=== PATIENT | male | born 1940 | race Caucasian/White ===

== ENCOUNTER 2018-09-11 08:37 | Inpatient (IN) | payer MEDICARE ==
[2018-09-10 11:49] LABS: MICROSCOPIC NOT IND
[2018-09-10 11:49] LABS: BASOPHILS # (AUTO) 0.01 x10^3/uL (0-0.1); BASOPHILS % (AUTO) 0 % (0-1); EOSINOPHILS # (AUTO) 0.08 x10^3/uL (0-0.4); EOSINOPHILS % (AUTO) 1 % (1-7); LYMPHOCYTES # (AUTO) 1.57 x10^3/uL (1-3.4); LYMPHOCYTES % (AUTO) 19 % (22-44); MD NO; MEAN CORPUSCULAR HEMOGLOBIN 32.4 pg (27.5-34.5); MEAN CORPUSCULAR HGB CONC 33.5 g/dL (33.2-36.2); MEAN CORPUSCULAR VOLUME 96.8 fL (81-97); MEAN PLATELET VOLUME 7.4 fL (7.4-10.4); MONOCYTES # (AUTO) 0.74 x10^3/uL (0.2-0.8); MONOCYTES % (AUTO) 9 % (2-9); NEUTROPHILS # (AUTO) 6.11 x10^3/uL (1.8-6.8); NEUTROPHILS % (AUTO) 72 % (42-75); PLATELET COUNT 276 x10^3/uL (130-400); RED BLOOD COUNT 4.44 x10^6/uL (4.38-5.82); RED CELL DISTRIBUTION WIDTH 13.6 % (9.4-14.8)
[2018-09-10 11:58] LABS: CULTURE INDICATED? NO
[2018-09-10 11:58] LABS: PROTHROMBIN TIME 10.5 Seconds (9.6-11.5)
[2018-09-10 11:59] LABS: ANION GAP 6 mmol/L (5-15); CHLORIDE 110 mmol/L (98-107)
[2018-09-10 12:04] LABS: ALANINE AMINOTRANSFERASE 20 U/L (12-78); ALKALINE PHOSPHATASE 104 U/L (45-117); BILIRUBIN,TOTAL 0.5 mg/dL (0.2-1.0); CREATININE 1.16 mg/dL (0.7-1.3); TOTAL PROTEIN 7.3 g/dL (6.4-8.2)
[~2018-09-11] VITALS: Ht 165.1 cm; Wt 77.4 kg
[~2018-09-11 08:37] MED LIST: CALCIUM MAG ZINC; CHOL500015 PO; COQ10; EPINEPHRINE 1 MG/ML, 1ML ONE; GABA300C10 PO; LIDOCAINE/PF 0.5% ,50ML ONE; MULT-108 PO; RAMI10CA59 PO; TAMS-11 PO; THROMBIN 5,000 UNIT VIAL TP ONE; TOBRAMYCIN SULFATE 1.2 GM IMP ONE; VANCOMYCIN 1,000 MG ONE
[2018-09-11] MEDS ORDERED: LACTATED RINGERS 1,000 ML IV SCH (09:17)
[2018-09-11] MEDS ORDERED: MIDAZOLAM 1 MG/ML, 2ML ONE (10:25)
[2018-09-11] MEDS ORDERED: FENTANYL PF 250 MCG/5ML ONE (10:33)
[2018-09-11] MEDS ORDERED: REMIFENTANIL 2 MG ONE (10:33)
[2018-09-11] MEDS ORDERED: PROPOFOL 50 ML ONE ×2 (10:38→11:46)
[2018-09-11] MEDS ORDERED: OXYcodone 5 MG/5 ML ORAL.SOL UDC PO PRN (11:30)
[2018-09-11] MEDS ORDERED: PROMETHAZINE 25 MG/ML, 1ML IV PRN (11:30)
[2018-09-11] MEDS ORDERED: METHOCARBAMOL 1,000 MG in DEXTROSE 5% 100 ML IV PRN (11:30)
[2018-09-11] MEDS ORDERED: HYDROmorphone 2 MG/ML, 1ML IVPush PRN (11:30)
[2018-09-11] MEDS ORDERED: HALOPERIDOL 5 MG/ML IV PRN (11:30)
[2018-09-11] MEDS ORDERED: MEPERIDINE/PF 25MG/0.5ML IVPush PRN (11:30)
[2018-09-11] MEDS ORDERED: hydrALAzine 20 MG/ML, 1ML IV PRN (11:30)
[2018-09-11] MEDS ORDERED: ACETAMINOPHEN 325 MG TABLET PO PRN (11:30)
[2018-09-11] MEDS ORDERED: OXYcodone 5 MG/5 ML ORAL.SOL UDC ONE (13:19)
[2018-09-11] MEDS ORDERED: FENTANYL PF 100 MCG/2ML ONE (13:23)
[2018-09-11] MEDS: FENTANYL PF 100 MCG/2ML IV PRN ×2 (13:25→13:30)
[2018-09-11] MEDS ORDERED: HYDROmorphone 2 MG/ML, 1ML ONE (13:36)
[2018-09-11] MEDS ORDERED: HYDROcodone/APAP 5/325 TABLET PO PRN (15:00)
[2018-09-11] MEDS ORDERED: morphine SULFATE 10 MG/ML, 1ML IV PRN (15:00)
[2018-09-11] MEDS ORDERED: DIPHENHYDRAMINE 50 MG/ML, 1ML IVPush PRN (15:00)
[2018-09-11] MEDS ORDERED: BISACODYL 10 MG SUPP PR PRN (15:00)
[2018-09-11] MEDS ORDERED: METHOCARBAMOL 750 MG TABLET PO PRN (15:00)
[2018-09-11] MEDS ORDERED: PROMETHAZINE 25 MG/ML, 1ML IM PRN (15:00)
[2018-09-11] MEDS ORDERED: ONDANSETRON 2MG/ML, 2ML IV PRN (15:00)
[2018-09-11] MEDS ORDERED: DIPHENHYDRAMINE 50 MG/ML, 1ML IM PRN (15:00)
[2018-09-11] MEDS ORDERED: MAGNESIUM HYDROXIDE 8%, 30ML UDC PO PRN (15:00)
[2018-09-11] MEDS ORDERED: DIPHENHYDRAMINE 50 MG CAPSULE PO PRN (15:00)
[2018-09-11] MEDS ORDERED: CEFAZOLIN 1,000 MG ONE (15:54)
[2018-09-11] MEDS ORDERED: SUCCINYLCHOLINE 20 MG/ML, 10ML ONE (15:54)
[2018-09-11] MEDS ORDERED: ONDANSETRON 2MG/ML, 2ML ONE (15:54)
[2018-09-11] MEDS ORDERED: PHENYLEPHRINE 10 MG/ML ONE (15:54)
[2018-09-11] MEDS ORDERED: DEXAMETHASONE 4 MG/ML, 1ML ONE (15:54)
[2018-09-11] MEDS: D5%-0.9% NACL+KCL 20MEQ 1,000 ML IV SCH (17:50)
[2018-09-11] MEDS ORDERED: GABAPENTIN 300 MG CAPSULE PO PRN (18:30)
[2018-09-11 19:50] VITALS: BP 147/89
[2018-09-11] MEDS: SENNA/DOCUSATE TABLET PO SCH (20:54)
[2018-09-11] MEDS: HYDROcodone/APAP 10/325 MG TABLET PO PRN (20:54)
[2018-09-11] MEDS: CEFAZOLIN PMX 1GM/50ML 50 ML IVPB SCH (20:54)
[2018-09-11] MEDS: METHOCARBAMOL 750 MG in DEXTROSE 5% 100 ML IV SCH (22:39)
[2018-09-11 23:39] VITALS: BP 146/84
[2018-09-12] MEDS: D5%-0.9% NACL+KCL 20MEQ 1,000 ML IV SCH (01:00)
[2018-09-12 04:15] VITALS: BP 141/83
[2018-09-12] MEDS: CEFAZOLIN PMX 1GM/50ML 50 ML IVPB SCH (05:46)
[2018-09-12] MEDS: METHOCARBAMOL 750 MG in DEXTROSE 5% 100 ML IV SCH (06:42)
[2018-09-12 07:00] VITALS: BP 159/87
[2018-09-12] MEDS: SENNA/DOCUSATE TABLET PO SCH (08:18)
[2018-09-12] MEDS: HYDROcodone/APAP 10/325 MG TABLET PO PRN ×2 (08:19→12:00)
[2018-09-12] MEDS ORDERED: TAMSULOSIN 0.4 MG CAP.ER.24H PO SCH (09:00)
[2018-09-12] MEDS ORDERED: RAMIPRIL 5 MG CAP PO SCH (09:00)
[2018-09-12] MEDS ORDERED: HYDR-3307 PO (11:53)
[2018-09-12] MEDS ORDERED: METHOCARBAMOL 750 MG TABLET PO SCH (15:00)
== END 2018-09-12 12:24 | disposition home or self-care (01) | DRG 472 ==
LOC: ORIP 08:37 → 4NOR 14:15 → DCLOUNGE 09-12 12:13
PROVIDERS: ADMIT Orthopaedic Surgery Orthopaedic Surgery of the Spine; ATTEND Orthopaedic Surgery Orthopaedic Surgery of the Spine
PROC: 0RB30ZZ Excision of Cervical Vertebral Disc, Open Approach (ICD-10-PCS; 2018-09-11)
PROC: 0RG10A0 Fusion of Cervical Vertebral Joint with Interbody Fusion Device, Anterior Approach, Anterior Column, Open Approach (ICD-10-PCS; principal; 2018-09-11 11:00)
DX: M47.22 Other spondylosis with radiculopathy, cervical region (principal); D68.69 Other thrombophilia; N40.0 Benign prostatic hyperplasia without lower urinary tract symptoms
CPT/HCPCS: 36415; 71046; 72040; 80053; 81003; 85025; 85610; 85730; 93005; 95938; 95941; C1713; G0378; J0171; J0690; J1100; J1170; J2001; J2250; J2405; J2704; J3010; J3260; J3370; C1762; J0330; J1200; J2370; J2800; J3480; J7120